=== PATIENT | female | born 1960 | race Caucasian/White ===

== ENCOUNTER → 2017-11-15 09:14 | Outpatient (CLI) | payer OTHER, SELFPAY ==
[2017-11-15 10:06] LABS: International Normalized Ratio 3.1; Prothrombin Time (Protime)PT. 32.4 SECONDS (11.7-14.9)
== END ==
PROVIDERS: Family Provider Internal Medicine; PCP Internal Medicine; Referring Provider Internal Medicine; Visit Provider Internal Medicine
DX: I48.2 Chronic atrial fibrillation (principal)
CPT/HCPCS: 36415; 85610

== ENCOUNTER → 2020-06-14 | Outpatient (CLI) | payer MEDICARE, SELFPAY ==
[2013-12-06 14:30] VITALS: BMI 38.9
[2020-06-14 13:00] LABS: International Normalized Ratio 1.7; Prothrombin Time (Protime)PT. 19.3 SECONDS (11.7-14.9)
== END | disposition home or self-care (01) ==
LOC: LABSPEC 12:39
PROVIDERS: PCP Internal Medicine; Referring Provider Clinical Nurse Specialist; Visit Provider Clinical Nurse Specialist
DX: I48.20 Chronic atrial fibrillation, unspecified (principal)
CPT/HCPCS: 85610

== ENCOUNTER → 2020-07-07 | Outpatient (CLI) | payer MEDICARE, SELFPAY ==
[2020-07-07 12:42] LABS: International Normalized Ratio 2.8; Prothrombin Time (Protime)PT. 28.5 SECONDS (11.7-14.9)
== END | disposition home or self-care (01) ==
LOC: LABSPEC 12:17
PROVIDERS: PCP Internal Medicine; Referring Provider Clinical Nurse Specialist; Visit Provider Clinical Nurse Specialist
DX: I48.20 Chronic atrial fibrillation, unspecified (principal)
CPT/HCPCS: 85610

== ENCOUNTER → 2020-07-28 | Outpatient (CLI) | payer MEDICARE, SELFPAY ==
[2013-12-06 14:30] VITALS: BMI 38.9
[2020-07-28 10:51] LABS: International Normalized Ratio 6.4; Prothrombin Time (Protime)PT. 55.6 SECONDS (11.7-14.9)
== END | disposition home or self-care (01) ==
LOC: LABSPEC 10:20
PROVIDERS: PCP Internal Medicine; Visit Provider Clinical Nurse Specialist
DX: I48.20 Chronic atrial fibrillation, unspecified (principal)
CPT/HCPCS: 85610

== ENCOUNTER → 2020-08-02 | Outpatient (CLI) | payer MEDICARE, SELFPAY ==
[2013-12-06 14:30] VITALS: BMI 38.9
[2020-08-02 11:19] LABS: International Normalized Ratio 2.4; Prothrombin Time (Protime)PT. 25.7 SECONDS (11.7-14.9)
== END | disposition home or self-care (01) ==
LOC: LABSPEC 11:04
PROVIDERS: PCP Internal Medicine; Referring Provider Clinical Nurse Specialist; Visit Provider Clinical Nurse Specialist
DX: I48.20 Chronic atrial fibrillation, unspecified (principal)
CPT/HCPCS: 85610

== ENCOUNTER → 2020-09-15 | Outpatient (CLI) | payer MEDICARE, SELFPAY ==
[2013-12-06 14:30] VITALS: BMI 38.9
[2020-09-15 14:15] LABS: Prothrombin Time (Protime)PT. 21.9 SECONDS (11.7-14.9)
== END | disposition home or self-care (01) ==
LOC: LABSPEC 13:55
PROVIDERS: PCP Internal Medicine; Referring Provider Clinical Nurse Specialist; Visit Provider Clinical Nurse Specialist
DX: I48.20 Chronic atrial fibrillation, unspecified (principal)
CPT/HCPCS: 85610

== ENCOUNTER → 2020-10-18 | Outpatient (CLI) | payer MEDICARE, SELFPAY ==
[2020-10-18 14:07] LABS: International Normalized Ratio 2.8; Prothrombin Time (Protime)PT. 28.6 SECONDS (11.7-14.9)
== END | disposition home or self-care (01) ==
LOC: LABSPEC 13:36
PROVIDERS: PCP Internal Medicine; Referring Provider Clinical Nurse Specialist; Visit Provider Clinical Nurse Specialist
DX: I48.20 Chronic atrial fibrillation, unspecified (principal)
CPT/HCPCS: 85610

== ENCOUNTER → 2020-11-15 | Outpatient (CLI) | payer MEDICARE, SELFPAY ==
[2020-11-15 11:37] LABS: International Normalized Ratio 2.3; Prothrombin Time (Protime)PT. 24.6 SECONDS (11.7-14.9)
== END | disposition home or self-care (01) ==
LOC: LABSPEC 11:07
PROVIDERS: PCP Internal Medicine; Referring Provider Clinical Nurse Specialist; Visit Provider Clinical Nurse Specialist
DX: I48.20 Chronic atrial fibrillation, unspecified (principal)
CPT/HCPCS: 85610

== ENCOUNTER 2020-11-26 06:22 | Emergency (ER) | payer MEDICARE, SELFPAY ==
[2020-11-26 06:30] VITALS: BP 141/64; PULSE 76; RESP 16; TEMP 36.4; O2SAT 98; BMI 32.3
--- NOTE | 2020-11-26 06:36 | RAD_ITS ---
STUDY: X-RAY CHEST REASON FOR EXAM: Female, 60 years old. chest pain TECHNIQUE: Single AP portable view of the chest. COMPARISON: 12/06/2013 FINDINGS: The lungs are clear and expanded. There is no demonstrated pleural abnormality. Normal size heart. Normal mediastinum and tripp. Normal visualized pulmonary arteries. Normal visualized aortic arch and descending thoracic aorta. Normal visualized thoracic spine. Normal visualized ribs, clavicles, and shoulders. There is no demonstrated abnormality of the visualized soft tissue structures of the upper abdomen. RAD/Chest 1 View (Portable) IMPRESSION: Normal x-ray examination of the chest. Electronically Signed: Mark Colon MD at 7:18 EDT Tel , Service support ,
--- NOTE | 2020-11-26 06:36 | EKG12_ITS ---
Test Reason : Blood Pressure : / mmHG Vent. Rate : 073 BPM Atrial Rate : 073 BPM P-R Int : 198 ms QRS Dur : 150 ms QT Int : 466 ms P-R-T Axes : 038 -05 126 degrees QTc Int : 513 ms Normal sinus rhythm Left bundle branch block Abnormal ECG Confirmed by CRISTINE PADRON, RAFIQ ([id number]), science editor NIA RAY ([id number]) on 11/29/2020 9:40:47 AM Referred By: JADEN Confirmed By:RAFIQ COLUNGA MD
--- NOTE | 2020-11-26 06:37 | EDS_ITS ---
HPI History of Present Illness Chief Complaint: Chest Pain Informant: patient Onset/Context/Timing Onset: Days (2-3) Activity at onset: gradual Timing: Continuous Quality: Positive for Pain (Kind of like cramping) Location: Substernal and Left Parasternal Current Severity: Severe Maximum Severity: Severe Worsened By: Exertion, Movement of Arm, Movement of Torso and Breathing (Sometimes) Relieved By: Nothing Associated Symptoms: Positive for Dyspnea; Negative for Nausea, Vomiting, Diaphoresis, Cough, Fever, Lightheadedness and Palpitations Narrative Narrative: Patient states she has been having this discomfort fairly constantly for the past 2 or 3 days, hoping it would go away on its own but it did not although it feels exactly like pain she has had with prior stent placement in her heart. It has been making her feel short of breath. She is on warfarin as she also has a history of atrial fibrillation she states. She has edema in her legs, she states this is fairly typical for her and not worse than usual, but it does wax and wane. She states she was supposed to follow-up with a director of product development after her stents, but has not. She has had no recent illness. She cannot remember any overuse of musculature, lifting something heavy, etc. that could explain why it also hurts to move around. She states that hurts in her upper back but that is chronic and unrelated she feels. She was vaccinated against Covid and has not had a that she knows of. Prior Similar Symptoms: Yes and With Prior [facility] Medical History (Updated 11/26/20 @ 07:[address] Ronn Cunha MD) CAD (coronary artery disease) Hypertension Hypothyroidism Paroxysmal atrial fibrillation Type II diabetes mellitus Home Medications albuterol sulfate [Ventolin Hfa] 1 puff INHALATION Q6H PRN PRN #1 inhaler 11/17/13 [Rx Last Taken Unknown] atorvastatin 40 mg PO DAILY 11/26/20 [History Last Taken Unknown] carvedilol 12.5 mg PO BID 11/26/20 [History Last Taken Unknown] empagliflozin [Jardiance] 10 mg PO DAILY 11/26/20 [History Last Taken Unknown] furosemide 20 mg PO DAILY 11/26/20 [History Last Taken Unknown] glimepiride 4 mg PO DAILY 11/26/20 [History Last Taken Unknown] insulin glargine [Basaglar KwikPen U-100 Insulin] 56 unit SUBCUT QPM 11/26/20 [History Last Taken Unknown] levothyroxine 175 mcg PO DAILY 11/26/20 [History Last Taken Unknown] oxybutynin chloride 10 mg PO QHS 11/26/20 [History Last Taken Unknown] spironolactone 25 mg PO DAILY 11/26/20 [History Last Taken Unknown] warfarin 5 mg PO SUTUTHSA 11/26/20 [History Last Taken Unknown] warfarin [Jantoven] 10 mg PO MOWEFR 11/26/20 [History Last Taken Unknown] Allergy/AdvReac Type Severity Reaction Status Date / Time latex Allergy Other Verified 11/26/20 06:23 Social History Smoking Status: Never smoker ROS ROS ED Constitutional Constitutional ED: Denies chills or fever(s) Eyes Eyes: Denies change in vision or diplopia ENT ENT ED: Denies rhinorrhea or sore throat Cardiovascular Cardiovascular: Reports chest pain, chest pain at rest and edema; Denies palpitations Respiratory/Chest Respiratory/Chest: Reports dyspnea on exertion; Denies cough Gastrointestinal Gastrointestinal: Denies abdominal pain, diarrhea, nausea or vomiting Genitourinary Genitourinary ED: Denies dysuria or hematuria Musculoskeletal Musculoskeletal: Reports back pain; Denies neck pain Integumentary Denies abscess or rash Neurologic Neurologic: Denies headache(s), paresthesias or weakness Psychiatric Psychiatric: Denies anxiety or suicidal thoughts EXAM Physical Exam Const Vital Signs: 11/26/20 06:30 11/26/20 06:40 11/26/20 06:42 Temperature 97.5 F L Temperature Source Temporal Pulse Rate 76 Respiratory Rate 16 Respiratory Effort Normal Respiratory Pattern Normal Blood Pressure 141/64 H Blood Pressure Mean 89 Pulse Ox 98 Oxygen Delivery Method Room Air Positive well nourished and well developed General Appearance ED: well developed and NAD HEENT Reports moist mucous membranes normocephalic and atraumatic Eyes PERRL and EOMs intact bilaterally Neck full ROM and supple Resp normal respiratory effort and clear to auscultation bilaterally Cardio regular rate, regular rhythm and no murmurs GI non-tender and non-distended Auscultation: normoactive bowel sounds Palpation: soft Back/Spine no CVA tenderness General Back: other FROM Extremity normal to inspection and no calf tenderness General Extremety ED: Yes edema; Negative for pulses abnormal or tenderness General Extremity: edema bilateral lower extremity Details: moderate; Negative for pulses abnormal Neuro oriented x3, CN's II-XII intact bilaterally and no sensory deficits noted Sensorium / Orientation: awake and alert Motor Exam: strength 5/5 throughout Skin no rashes or lesions noted and no wounds Heart Score History: Moderately Suspicious ECG: Nonspecific Repolarization Age: >45 - <65 years Risk Factors: >/= 3 Risk Factors or History of CAD Score: 5 MDM MDM MDM Narrative Medical decision making narrative: Cardiac work-up ordered, EKG shows left bundle branch block, no acute injury pattern seen. Nitroglycerin ordered, but not given because her blood pressure is just over 100 systolic and I do not want to drop it significantly and do the patient any harm. Furthermore, her troponin high-sensitivity comes back at 7 which is well within normal limits especially for someone who has been having constant chest discomfort for 2-3 days. After discussing all this with her and the fact that her EKG shows a stable left bundle branch block, she suggests maybe this is muscular and not her heart, which is my thought as well. She is therapeutically anticoagulated at an INR of 2.1. Her chest x-ray and BNP are normal, suggesting she is not in acute decomp ensated congestive heart failure. I did review her echocardiogram, however it is from approximately 7 years ago, showing an ejection fraction of 35%. At this time I think it is probably reasonable that she follow-up as an outpatient with cardiology. I discussed with Dr. Tobin, he is in agreement. Patient will follow up. She is comfortable with that plan. Lab Data Attestation: I reviewed the patient's lab results. Labs: Laboratory Results - last 24 hr 11/26/20 11/26/20 11/26/20 06:29 06:29 06:29 WBC 7.7 RBC 5.16 Hgb 15.2 H Hct 46.4 MCV 89.9 MCH 29.5 MCHC 32.8 RDW Std Deviation 42.3 RDW Coeff of Sophie 12.8 Plt Count 345 MPV 9.0 Immature Gran % (Auto) 0.400 Neut % (Auto) 53.7 Lymph % (Auto) 32.3 [place] % (Auto) 9.6 Eos % (Auto) 3.1 Baso % (Auto) 0.9 Absolute Neuts (auto) 4.1 Absolute Lymphs (auto) 2.48 Nucleated RBC % 0 PT 23.2 H INR 2.1 Sodium 139 Potassium 3.6 Chloride 100 Carbon Dioxide 30.0 Anion Gap 9 BUN 21 H Creatinine 1.02 Estim Creat Clear Calc 49.73 Est GFR (MDRD) Af Amer 71 Est GFR (MDRD) Non-Af 59 L BUN/Creatinine Ratio 20.6 H Glucose 225 H Calcium 9.7 Troponin I High Sens 7 B-Natriuretic Peptide 11/26/20 06:29 WBC RBC Hgb Hct MCV MCH MCHC RDW Std Deviation RDW Coeff of Sophie Plt Count MPV Immature Gran % (Auto) Neut % (Auto) Lymph % (Auto) [place] % (Auto) Eos % (Auto) Baso % (Auto) Absolute Neuts (auto) Absolute Lymphs (auto) Nucleated RBC % PT INR Sodium Potassium Chloride Carbon Dioxide Anion Gap BUN Creatinine Estim Creat Clear Calc Est GFR (MDRD) Af Amer Est GFR (MDRD) Non-Af BUN/Creatinine Ratio Glucose Calcium Troponin I High Sens B-Natriuretic Peptide 8.1 Radiography Diagnostic Testing: Clinical Impression(s) from Imaging Studies Chest X-Ray 11/26/20 06:36 IMPRESSION: Normal x-ray examination of the chest. Electronically Signed: Mark Colon MD at 7:18 EDT Tel , Service support , EKG Initial EKG: Attestation: I personally reviewed and interpreted this EKG as follows: Interpretation: Sinus Rhythm, No Acute Injury Pattern and LBBB Prior EKG tracings: available for review Prior: Unchanged Discharge Plan Triage Chief Complaint: Chest Pain ED Provider: Ronn Cunha Dx/Rx/DC Orders Clinical Impression: Chest pain, unspecified, Warfarin-induced coagulopathy Instructions: ED Chest Pain, Uncertain Cause Prescriptions: No Action albuterol sulfate [Ventolin HFA] 1 INHALER inhaler 1 puff inhalation Q6H PRN PRN (Reason: Dyspnea) Qty: 1 RF: 0 atorvastatin 40 mg tablet 40 mg PO DAILY RF: 0 levothyroxine 175 mcg Tablet 175 mcg PO DAILY RF: 0 carvedilol 12.5 mg Tablet 12.5 mg PO BID RF: 0 oxybutynin chloride 10 mg Tablet Extended Release 24hr 10 mg PO QHS RF: 0 spironolactone 25 mg tablet 25 mg PO DAILY RF: 0 glimepiride 4 mg Tablet 4 mg PO DAILY RF: 0 warfarin 5 mg tablet 5 mg PO SUTUTHSA RF: 0 furosemide 20 mg Tablet 20 mg PO DAILY RF: 0 Basaglar KwikPen U-100 Insulin 100 unit/mL (3 mL) Insulin Pen 56 unit SUBCUT QPM RF: 0 Jardiance 10 mg tablet 10 mg PO DAILY RF: 0 warfarin [Jantoven] 5 MG tablet 10 mg PO MOWEFR RF: 0 Primary Care Provider: Ale Mclean Referrals: Ale Mclean MD [Primary Care Provider] - Ezequiel Tobin MD [STAFF PHYSICIAN] - (call saturday for appt to be seen this coming week) Disposition Disposition: Home, Self Care
[2020-11-26 06:47] LABS: Absolute Lymphocyte Count 2.48 X10^3/uL (0.83-4.51); Absolute Neutrophil Count 4.1 X10^3/uL (2.0-7.7); Basophil# 0.07 X10^3/uL; Basophil% 0.9 % (0-1); Eosinophil# 0.24 X10^3/uL; Eosinophils% 3.1 % (0-5); Hematocrit 46.4 % (37-47); Hemoglobin 15.2 g/dL (12.0-15.0); Lymphocyte # 2.48 X10^3/ul (0.83-4.51); Lymphocyte % 32.3 % (19-41); Mean Corp Hgb Conc 32.8 g/dL (32-36); Mean Corpuscular Hgb 29.5 pg (27.0-32.0); Mean Corpuscular Volume 89.9 fL (81-99); Monocyte# 0.74 X10^3/uL; Monocyte% 9.6 % (0-10); NRBC Flagged by Analyzer 0 % (0-5); Neutrophil # 4.11 X10^3/uL (2.7-7.7); Neutrophil % 53.7 % (47-70); Platelet Count 345 K/mm3 (150-450); RBC Distribution Width CV 12.8 % (11.6-14.6); RBC Distribution Width SD 42.3 fl (35.1-43.9); Red Blood Count 5.16 M/mm3 (4.2-5.4); White Blood Count 7.7 K/mm3 (4.4-11.0)
[2020-11-26 06:51] LABS: International Normalized Ratio 2.1; Prothrombin Time (Protime)PT. 23.2 SECONDS (11.7-14.9)
[2020-11-26] MEDS: 0.9% Normal Saline 1,000 ML 150 ML IV (06:56)
[2020-11-26 07:04] LABS: Anion Gap 9 (5-15); BUN 21 mg/dL (7-18); BUN/Creat Ratio 20.6 RATIO (10-20); Calcium,Total 9.7 mg/dL (8.5-10.1); Chloride 100 mmol/L (98-107); Creatinine, Serum 1.02 mg/dL (0.55-1.02); EST Glomerular Filtration Rate 59 mL/min (>60); Est Glom Filt Rate - Afr Amer 71 mL/min (>60); Estimated Creatinine Clearance 49.73 ml/min; Glucose 225 mg/dL (74-106); Potassium 3.6 mmol/L (3.5-5.1); Sodium Level 139 mmol/L (136-145); Troponin-I HS 7 pg/mL (3.0-54.0)
[2020-11-26 07:13] LABS: BNP,B-Type NATRIURETIC PEPTIDE 8.1 pg/mL (0-100)
[2020-11-26 07:57] VITALS: BP 109/68; PULSE 79; RESP 18; O2SAT 97
== END 2020-11-26 07:58 | disposition home or self-care (01) ==
PROVIDERS: Emergency Provider Emergency Medicine; PCP Internal Medicine
DX: R07.9 Chest pain, unspecified (principal); D68.9 Coagulation defect, unspecified; T45.515A Adverse effect of anticoagulants, initial encounter; I48.0 Paroxysmal atrial fibrillation; I25.10 Atherosclerotic heart disease of native coronary artery without angina pectoris; I10 Essential (primary) hypertension; E03.9 Hypothyroidism, unspecified; E11.9 Type 2 diabetes mellitus without complications; Z79.01 Long term (current) use of anticoagulants; Z79.84 Long term (current) use of oral hypoglycemic drugs; Z79.899 Other long term (current) drug therapy; Z95.5 Presence of coronary angioplasty implant and graft; R06.02 Shortness of breath
CPT/HCPCS: 71045; 80048; 83880; 84484; 85025; 85610; 93005; 96360; 99284; J7030; A4216